=== PATIENT | female | born 1980 | race Two or more races ===

== ENCOUNTER 2024-12-06 12:41 | Emergency (ER) | payer MEDICAID, SELFPAY ==
[2024-12-06 12:43] VITALS: BMI 33.8
[2024-12-06 12:53] VITALS: BP 136/86; PULSE 65; RESP 20; TEMP 37.1; O2SAT 100
--- NOTE | 2024-12-06 13:13 | XR_ITS ---
EXAMINATION: XR chest 2V ORDERING PROVIDER: RENARD Collazo HISTORY: Chest Pain TECHNIQUE: PA and Lateral radiographs of the chest. COMPARISON: None. FINDINGS: Lungs: Bronchial wall thickening, predominantly basilar with mild increased opacities in the left greater than right lung bases. Pleura: No pneumothorax or pleural effusion. Cardiomediastinal Silhouette: Normal. Soft Tissues/Bones: Normal. IMPRESSION: Findings concerning for developing bibasilar infection.
--- NOTE | 2024-12-06 13:13 | EKG_ITS ---
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
--- NOTE | 2024-12-06 13:14 | PD.EDRME ---
Rapid Medical Screening Exam RME Arrival date/time: 12/06/24 12:41 44-year-old female with no known medical history presents to the emergency room with a chief complaint of 6 out of 10 sternal chest pain x 1 day. Patient states she was seen at her primary care provider's office and was sent to the emergency room. Patient states this is not the first time that this incident has occurred and in the last month has happen 1 or 2 times. I have greeted and performed a focused initial assessment of this patient. A comprehensive ED assessment and evaluation of the patient, analysis of all test results, and completion of the medical decision making process will be conducted by additional ED providers. Chief Complaint: Chest Pain Time Seen by Provider: 12/06/24 13:02 Vital signs: Vital Signs Temperature 98.7 F 12/06/24 12:53 Pulse Rate 65 12/06/24 12:53 Respiratory Rate 20 12/06/24 12:53 Blood Pressure 136/86 H 12/06/24 12:53 Pulse Oximetry (%) 100 12/06/24 12:53 Oxygen Delivery Method Room Air 12/06/24 12:53 Vital signs reviewed by provider: Yes
[2024-12-06 14:10] LABS: Basophils % (Auto) 0 % (0-2.5); Eosinophils # (Auto) 0.1 Thou/mm3 (0.0-0.5); Eosinophils % (Auto) 2 % (0-10); Hemoglobin 13.7 g/dL (12.0-16.0); Immature Granulocytes % (Auto) 0 % (0-0); Immature Granulocytes Auto 0.04 Thou/mm3 (0.00-0.00); Lymphocytes # (Auto) 2.8 Thou/mm3 (1.0-4.8); Lymphocytes % (Auto) 30 % (10-50); Mean Corpuscular HGB Conc 34.3 g/dl (31.0-37.0); Mean Corpuscular Hemoglobin 29.7 pg (25.0-35.0); Mean Corpuscular Volume 87 fL (80-100); Monocytes # (Auto) 0.6 Thou/mm3 (0.0-0.8); Monocytes % (Auto) 6 % (0-12); Neutrophils # (Auto) 5.8 Thou/mm3 (1.8-7.7); Neutrophils % (Auto) 62 % (37-80); Nucleated Red Blood Cell % 0 /100 WBC (0); Platelet Count 274 Thou/mm3 (140-440); RDW Standard Deviation 39.7 fL (36.4-46.3); Red Blood Count 4.62 Miln/mm3 (4.00-5.20); White Blood Count 9.3 Thou/mm3 (3.6-11.0)
[2024-12-06 14:28] LABS: INR 1.1 (0.9-1.3); Partial Thromboplastin Time 27.8 Seconds (22.0-36.0); Prothrombin Time 11.7 Seconds (9.0-12.2)
[2024-12-06 14:33] LABS: Alanine Aminotransferase 22 U/L (10-49); Albumin, Serum 4.3 gm/dL (3.5-5.0); Albumin/Globulin Ratio 1.5 (1.2-2.2); Alkaline Phosphatase 73 U/L (46-116); Anion Gap 7 (7-16); Aspartate Amino Transferase 25 U/L (0-34); BUN/Creatinine Ratio 14 Ratio (12-20); Bilirubin,Total 0.6 mg/dL (0.3-1.2); Blood Urea Nitrogen 11 mg/dL (9-23); Calcium 9.2 mg/dL (8.3-10.6); Calcium (Corrected) 9.2 mg/dL (8.5-10.1); Carbon Dioxide 26.8 mMol/L (20.0-31.0); Chloride 105 mMol/L (98-107); Creatinine (Component) 0.8 mg/dL (0.6-1.3); Estimated Creatinine Clearance 95.6 mL/min (>60); Globulin 2.8 gm/dL (2.3-3.5); Glucose 91 mg/dL (74-106); Magnesium 2.1 mg/dL (1.6-2.6); Osmolality,Calculated 276 (275-295); Potassium 4.1 mMol/L (3.4-5.1); Sodium 139 mMol/L (136-145); Total Protein 7.1 gm/dL (5.7-8.2); Troponin I < 0.002 ng/mL (0.0-0.045); eGFR > 60 See Note
[2024-12-06 14:53] LABS: B-Type Natriuretic Peptide < 20 pg/mL (0-100)
[2024-12-06 15:05] LABS: Collection Type, Urine Clean Catch
[2024-12-06 15:33] LABS: Bilirubin,Urine Negative (Negative); Blood,Urine Negative (Negative); Clarity,Urine Turbid (Clear/Hazy); Color,Urine Lt-Yellow (Lt Yel-Yel); Glucose, Urine Negative (Negative); Hyaline Casts,Urine < 1 /hpf (0-1); Ketones,Urine 1+ (Negative); Leukocyte Esterase,Urine Negative (Negative); Nitrite,Urine Positive (Negative); Protein,Urine Negative (Neg - Trace); RBC,Urine 3 /hpf (0-3); Specific Gravity,Urine 1.011 (1.001-1.035); Squamous Epithelial Cell,Urine 18 /hpf (0-5); Urobilinogen,Urine Negative mg/dL (0.0-1.0); WBC,Urine 3 /hpf (0-5)
--- NOTE | 2024-12-06 15:43 | PD.EDCHEST ---
ED Chest Pain RME/HPI General Chief Complaint: Chest Pain Stated Complaint: Chest Pain Time Seen by Provider: 12/06/24 13:02 Arrival date/time: 12/06/24 12:41 RME / HPI RME / HPI narrative: 12/06/24 12:41 44-year-old female with no known medical history presents to the emergency room with a chief complaint of 6 out of 10 sternal chest pain x 1 day. Patient states she was seen at her primary care provider's office and was sent to the emergency room. Patient states this is not the first time that this incident has occurred and in the last month has happen 1 or 2 times. I have greeted and performed a focused initial assessment of this patient. A comprehensive ED assessment and evaluation of the patient, analysis of all test results, and completion of the medical decision making process will be conducted by additional ED providers. DR LINDA MCNEILL ED EVALUATION: 44-year-old female patient complaining of substernal chest pain starting this morning around 7:30 AM, lasting until about feeding. She had associated nausea. Also complains of associated mild fatigue. Describes as a pressure-like sensation. Occasional radiation to left shoulder. Denies cough, denies fever, complains of mild shortness of breath. Symptoms have resolved without intervention. Related Data Allergies Allergy/AdvReac Type Severity Reaction Status Date / Time No Known Allergies Allergy Verified 12/06/24 12:43 Review of Systems Review of Systems Systems Reviewed: All systems reviewed, normal except as documented ED Exam Narrative Physical exam: GENERAL APPEARANCE: alert and oriented x 4, well-developed, well-nourished, no acute distress HEENT: Normocephalic, atraumatic; pupils equal, round, reactive to light; EOMI; mucous membranes pink, moist; oropharynx clear NECK: Supple LUNGS: CTABL; no wheezes, no rales, no rhonchi HEART: Regular rate, regular rhythm; normal S1, S2; no murmurs ABDOMEN: non distended; normal BS; soft, no tenderness, no guarding, no rebound; no masses, no organomegaly, no hernia BACK: no CVA tenderness EXTREMITIES: atraumatic; no edema NEUROLOGIC: awake; alert and oriented x4; cranial nerves II-XII grossly intact; no focal sensory or motor deficits PSYCHIATRIC: appropriate mood and affect SKIN: warm, dry, normal color; no rashes Course Course Course Narrative: Ibuprofen 600 p.o. Patient reassured that symptoms were unlikely cardiac in origin Quality Measures none Orders Category Date Time Status EKG (ED ONLY) *Do not use* NOW Care 12/06/24 13:13 Completed EKG (ED Only) Stat Exams 12/06/24 13:13 Draft XR chest 2V Stat Exams 12/06/24 13:13 Completed B-Type Natriuretic Peptide Stat Lab 12/06/24 13:34 Completed CBC Stat Lab 12/06/24 13:34 Completed Comprehensive Metabolic Panel Stat Lab 12/06/24 13:34 Completed Magnesium Stat Lab 12/06/24 13:34 Completed Partial Thromboplastin Time Stat Lab 12/06/24 13:34 Completed Prothrombin Time with INR Stat Lab 12/06/24 13:34 Completed Troponin I Stat Lab 12/06/24 13:34 Completed Urinalysis Stat Lab 12/06/24 14:06 Received Ibuprofen Tab [Motrin Tab] Med 12/06/24 15:47 Once 600 mg PO X1 ONE Vital Signs Vital signs: Vital Signs Temperature 98.7 F 12/06/24 12:53 Pulse Rate 65 12/06/24 12:53 Respiratory Rate 20 12/06/24 12:53 Blood Pressure 136/86 H 12/06/24 12:53 Pulse Oximetry (%) 100 12/06/24 12:53 Oxygen Delivery Method Room Air 12/06/24 12:53 Chest Pain MDM Narrative MDM Narrative:: 44-year-old female patient with atypical chest pain. Workup negative. Healthy patient with no medical problems. Patient data External records reviewed:: [facility] previous records Clinical information provided by:: patient Social determinants that could affect healthcare access:: none Patient has the following chronic illnesses:: None How is presenting disease/condition affected by chronic disease/condition?: no chronic disease Evaluation data The following diagnostics were reviewed and interpreted by me:: lab results, radiology exam(s) and EKG tracing(s) (Sinus rate of 63, normal axis, no acute ischemic changes) Lab and/or radiology exams considered but not ordered:: Consider D-dimer Interpretation Summary: Troponin negative, EKG normal Medications / Prescriptions Medications or Prescriptions considered but not ordered:: None Medication administrations:: Medication Administration History Ibuprofen (Ibuprofen Tab 600 Mg Tablet) 600 mg PO X1 ONE Stop: 12/06/24 15:48 As above Consultations Consultation(s) initiated? (list below): No Diagnosis Chest Pain Differential Diagnosis: fracture of rib, pneumothorax, stable angina, unstable angina pectoris, atypical chest pain, st elevation myocardial infarction, costochondritis and chest pain Most likely diagnosis given after review of the tests above:: Atypical chest pain Admission Indicated Admission indicated?: not indicated Explain why admission is indicated or not indicated:: Stable for outpatient follow-up and management Admission Request Was there a request for admission?: No Disposition Plan Disposition Plan: Discharge Discharge Attestation Discharge Attestation: The patient and all family members were given an opportunity to ask questions and understood the discharge instructions. Discharge instructions specifically effects, indications for sooner follow up or return to the emergency department, and the expected course of current diagnosis. Patient condition: Stable Discharge Plan Plan Patient Disposition: HOME (Self Care) Prescriptions/Referrals Referrals: No Primary/Family,Physician [Primary Care Provider] - In 1 week Problem List Clinical Impression: Atypical chest pain Patient/Caregiver Discharge Instructions Education Materials: ED Chest Pain, Uncertain Cause Print Language: Kinyarwanda Stand Alone Forms: Elizabeth Award Info., Patient Portal Info Letter
[2024-12-06] MEDS: IBUPROFEN TAB 600 MG TABLET PO (16:40)
== END 2024-12-06 16:42 | disposition home or self-care (01) ==
PROVIDERS: Nurse Practitioner Family; Emergency Provider Emergency Medicine
DX: R07.89 Other chest pain (principal)
CPT/HCPCS: 36415; 71046; 80053; 81001; 83735; 83880; 84484; 85025; 85610; 85730; 93005; 99283; A9270